=== PATIENT | male | born 1950 | race Caucasian/White ===

== ENCOUNTER 2018-03-18 09:48 | Day surgery (SDC) | payer BC ==
[2018-03-11 09:08] VITALS: BMI 25.5
[2018-03-18] MEDS: KETOROLAC TROMETHAMINE 0.5% 5 ML BOTTLE OPTHALMIC ONE ×5 (10:15→10:35)
[2018-03-18] MEDS: CYCLOPENTOLATE HCL 1% OPHTH SOLN 2 ML BOTTLE ONE ×5 (10:15→10:35)
[2018-03-18] MEDS: PHENYLEPHRINE 2.5% OPHTH SOLN 15 ML BOTTLE ONE ×5 (10:15→10:35)
[2018-03-18] MEDS: TROPICAMIDE 1% OPHTH SOLN 15 ML BOTTLE ONE ×5 (10:15→10:35)
[2018-03-18] MEDS: GENTAMICIN SULFATE 0.3% OPHTHALMIC (EYE DROPS) 5ML BOTTLE ONE ×2 (10:15→10:35)
[2018-03-18] MEDS ORDERED: ACETAMINOPHEN 325 MG TABLET (FP) PO PRN (10:24)
[2018-03-18] MEDS ORDERED: MIDAZOLAM HCL 2 MG/2 ML SINGLE DOSE VIAL ONE (10:53)
[2018-03-18] MEDS ORDERED: ONDANSETRON 4 MG/2 ML VIAL ONE (10:54)
[2018-03-18] MEDS ORDERED: ONDANSETRON 4 MG/2 ML VIAL IVPUSH PRN (12:14)
[2018-03-18] MEDS ORDERED: LACTATED RINGERS SOLUTION 1,000 ML IV SCH (12:15)
[2018-03-18 12:27] VITALS: TEMP 97.6
[2018-03-18 13:16] VITALS: BP 125/69; PULSE 54
--- NOTE | 2018-03-18 13:26 | OP ---
DATE OF OPERATION: 03/18/2018 PROCEDURE PERFORMED: Planned extracapsular cataract extraction via phacoemulsification with insertion of posterior chamber lens implant of the right eye. PREOPERATIVE DIAGNOSIS: Cataract right eye. POSTOPERATIVE DIAGNOSIS: Cataract right eye. SURGEON: Srini Arenas M.D. ELECTROPHYSIOLOGY NURSE PRACTITIONER: Srini Arenas M.D. ANESTHESIA: Local with stand-by. NURSE BUSINESS RULES DEVELOPER: William Smith ANESTHESIOLOGIST: Preston Lau MD COMPLICATIONS: None. DESCRIPTION OF PROCEDURE: After successful peribulbar anesthesia was given to the right eye, the patient was prepped and draped in the usual manner to expose the right eye. A lid speculum was inserted. The microscope was brought into position over the eye. Tegaderm strips were placed to retract the eyelashes and the speculum inserted, as I mentioned. A superior fornix-based flap was then fashioned for 12 mm using Nimco scissors and 0.12 forceps. Hemostasis was achieved with wet field cautery. A limbal groove was fashioned for 3 mm, dissecting into clear cornea. A 3-mm blade was used to enter the anterior chamber. Under Viscoat, a 360-degree anterior capsulotomy was performed. The leaflet was removed from the eye. Phacoemulsification of the entire nucleus was then done in approximately 1-1/2 minutes' time, followed by irrigation and aspiration of all cortical material, leaving intact posterior capsule and a red reflex present. It should be noted that Shugarcaine was injected prior to the commencement of the capsulotomy. As I mentioned, the cortical material was aspirated out without complication the entire posterior capsule and a red reflex present. Provisc was injected into the posterior chamber to deepen the posterior capsule. The implant was inspected carefully under the microscope and found to be free of defects flaws. It was folded and placed in the Provisc-filled cartridge. The cartridge was placed in the injector, and the implant was injected into the eye such that the inferior haptic was in the inferior capsular bag and the superior haptic was in the superior capsular bag and rotated into the horizontal position with a Sinskey hook. The Provisc was aspirated out, with placement of Miochol, Miostat and BSS. The wound was closed with a single interrupted 2-0 Ethilon suture. It was tested for leakage and none was found. The conjunctival Tenon's flap was reapproximated. At this point the implant was fixated in the capsular bag, centrally located, with a round pupil, intact posterior capsule and a red reflex present. Topical Betoptic S and Maxitrol ophthalmic suspension were placed, as was bacitracin and polymyxin B ophthalmic ointment. As I mentioned before, the Provisc was aspirated out completely and replaced with Miochol, Miostat and BSS. The Tegaderm strips and the speculum were removed from the lids. The lids were closed, and a patch and shield placed on the eye. The patient was then discharged from the operating room to the recovery area in good condition, having tolerated the procedure well. Yovany [id number]
== END 2018-03-18 12:55 | disposition home or self-care (01) ==
LOC: FASU 09:48
PROVIDERS: ATTEND Ophthalmology
PROC: 08RJ3JZ Replacement of Right Lens with Synthetic Substitute, Percutaneous Approach (ICD-10-PCS; principal; 2018-03-18 11:28)
DX: H26.9 Unspecified cataract (principal)

== ENCOUNTER 2018-04-29 09:45 | Day surgery (SDC) | payer BC ==
[2018-04-09 19:15] VITALS: BMI 25.5
[2018-04-29] MEDS: TROPICAMIDE 1% OPHTH SOLN 15 ML BOTTLE ONE ×5 (10:25→10:45)
[2018-04-29] MEDS: GENTAMICIN SULFATE 0.3% OPHTHALMIC (EYE DROPS) 5ML BOTTLE ONE ×2 (10:25→10:45)
[2018-04-29] MEDS: CYCLOPENTOLATE HCL 1% OPHTH SOLN 2 ML BOTTLE ONE ×5 (10:25→10:45)
[2018-04-29] MEDS: KETOROLAC TROMETHAMINE 0.5% EYE DROP 1 DROP DROPS ONE ×5 (10:25→10:45)
[2018-04-29] MEDS: PHENYLEPHRINE 2.5% OPHTH SOLN 15 ML BOTTLE ONE ×5 (10:25→10:45)
[2018-04-29] MEDS ORDERED: ACETAMINOPHEN 325 MG TABLET (FP) PO PRN (12:46)
[2018-04-29] MEDS ORDERED: PROPOFOL 20 ML ONE (12:53)
[2018-04-29] MEDS ORDERED: LIDOCAINE HCL/PF 2% SDV 5ML VIAL ONE (12:57)
[2018-04-29] MEDS ORDERED: LIDOCAINE HCL 2% JELLY 10 ML CARTRIDGE ONE (12:57)
[2018-04-29] MEDS ORDERED: EPI-SHUGARCAINE (EPINEPHRINE 0.025% & LIDOCAINE-PF 0.75%) 4ML ONE (12:57)
[2018-04-29] MEDS ORDERED: TETRACAINE 0.5% OPHTH SOLN 2 ML BOTTLE ONE (12:57)
[2018-04-29] MEDS ORDERED: BUPIVACAINE HCL/PF 0.5% (5MG/ML) 10 ML VIAL ONE (12:57)
[2018-04-29] MEDS ORDERED: NEO/POLYMYX B SULF/DEXAMETH OPHTHALMIC 5ML BOTTLE ONE (12:58)
[2018-04-29] MEDS ORDERED: ONDANSETRON 4 MG/2 ML VIAL IVPUSH PRN (13:00)
[2018-04-29 14:30] VITALS: TEMP 98.2
[2018-04-29] MEDS ORDERED: ACETAMINOPHEN 325 MG TABLET (FP) ONE (14:31)
[2018-04-29 14:57] VITALS: BP 150/83; PULSE 60
--- NOTE | 2018-04-30 08:38 | OP ---
DATE OF OPERATION: 04/29/2018 PREOPERATIVE DIAGNOSIS: Cataract, left eye. POSTOPERATIVE DIAGNOSIS: Cataract, left eye. PROCEDURE: Extracapsular cataract extraction, phacoemulsification with insertion of posterior chamber lens implant, left eye. SURGEON: Srini Barragan MD PEDIATRIC AUDIOLOGIST: Srini Barragan MD ANESTHESIOLOGISTS: Abdulaziz Vicente MD and Neil Rouse MD ANESTHESIA: Local standby. COMPLICATIONS: None. PROCEDURE IN DETAIL: After successful peribulbar anesthesia was given to the left eye, the patient was prepped and draped in the usual manner, exposing the left eye. A lid speculum was inserted after the were placed on the lashes and the microscope was positioned over the eye. A superior fornix-based flap was then fashioned for 12 mm and Nimco scissors forceps. Hemostasis was achieved with wet field cautery. A limbal groove was then fashioned for 3 mm of the crescent blade and dissected anterior into clear cornea. Then, a 3-mm blade was used to enter the anterior chamber and a anterior capsulotomy was performed leaflet removed from the eye. Phacoemulsification of the entire nucleus was then done approximately 2-1/2 time followed by irrigation and aspiration of all cortical material. intact posterior capsule and a red reflex present. Provisc was injected into the posterior chamber to deepen the posterior capsule. The implant was inspected carefully under the microscope and found to be free of debris and flaws. It was folded and placed in the Provisc-filled cartridge. The cartridge was placed in the injector and the implant was injected into the eye such that the inferior haptic was in the inferior capsular bag and the superior haptic was in the capsular bag and rotated in horizontal position with a Sinskey hook. Provisc was aspirated out. We place Miochol and . The wound was closed with single interrupted suture and tested for leakage. None was found and the conjunctival Tenon flap was reapproximated. At this point, the implant was fixated and the capsular bag centrally located with a round pupil. The entire posterior capsule had red reflex present. The conjunctival Tenon flap was reapproximated. Topical Betoptic Maxitrol ophthalmic suspensions were placed, as were Bacitracin, Polymyxin-B ophthalmic ointment. The Tegaderm strips and eye speculum were removed from the lids. The lids were closed and a patch and shield placed on the eye. The patient was then discharged from the operating room to the recovery room in good condition, having tolerated the procedure well. SRINI BARRAGAN M.D. [id number]
== END 2018-04-29 15:01 | disposition home or self-care (01) ==
LOC: FASU 09:45
PROVIDERS: ATTEND Ophthalmology
PROC: 08RK3JZ Replacement of Left Lens with Synthetic Substitute, Percutaneous Approach (ICD-10-PCS; principal; 2018-04-29 13:27)
DX: H26.9 Unspecified cataract (principal)